=== PATIENT | male | born 1990 | race Caucasian/White ===

== ENCOUNTER 2021-05-27 16:49 | Emergency (ER) | payer MEDICAID ==
[~2021-05-27] VITALS: Ht 172.7 cm; Wt 93.0 kg
[2021-05-27 17:09] VITALS: BP 117/59
--- NOTE | 2021-05-27 17:12 | NUR ---
PT IS A&OX2 AT THIS TIME TO NAME AND . STATES HE ALSO HAD 24 OUNCES OF ALCOHOL, UNSPECIFIED.
--- NOTE | 2021-05-27 17:12 | NUR ---
NOVEL AND DEVON SWABBED
[2021-05-27] MEDS ORDERED: OLANZapine 5 MG ODT SL ONE (17:15)
[2021-05-27 17:51] LABS: BARBITURATE, URINE NEGATIVE ng/ml (NEG <=200); BENZODIAZEPINE, URINE POSITIVE ng/mL (NEG <=200); CANNABINOID, URINE POSITIVE ng/mL (NEG <=50); COCAINE, URINE NEGATIVE ng/mL (NEG <=300); OPIATE, URINE NEGATIVE ng/mL (NEG <=2000); PHENCYCLIDINE SCREEN,URINE NEGATIVE ng/mL (NEG <=25)
[2021-05-27 18:06] LABS: BASOPHILS % (AUTO) 0.9 % (0.0-2.0); EOSINOPHILS # (AUTO) 0.1 K/uL (0-0.4); EOSINOPHILS % (AUTO) 1.2 % (0.0-4.0); HEMATOCRIT 42.5 % (36-52); HEMOGLOBIN 14.8 g/dL (12.0-18.0); LYMPHOCYTES # (AUTO) 1.9 K/uL (2.0-11.5); MEAN CORPUSCULAR HEMOGLOBIN 30 pg (27-31); MEAN CORPUSCULAR HGB CONC 35 g/dL (33-37); MEAN CORPUSCULAR VOLUME 87.2 fL (80-94); MONOCYTES # (AUTO) 0.5 K/uL (0.8-1.0); MONOCYTES % (AUTO) 9.9 % (1.7-9.3); PLATELET COUNT (AUTO) 248 K/uL (140-450); RED BLOOD CELL COUNT(AUTO) 4.87 MIL/uL (4.20-6.10); WHITE BLOOD COUNT (AUTO) 5.5 K/uL (4.8-10.8)
[2021-05-27 18:18] LABS: ACETAMINOPHEN < 0.5 ug/ml (10-30); ALBUMIN 3.7 g/dL (3.4-5.0); ANION GAP 11.6 (8-16); ASPARTATE AMINOTRANSFERASE 30 U/L (15-37); CHLORIDE 105 mmol/L (98-107); CREATININE 0.8 mg/dL (0.6-1.3); GFR ARICAN-AMERICAN 146 mL/min (>90); GLUCOSE 90 mg/dL (74-106); POTASSIUM 3.6 mmol/L (3.5-5.1); SALICYLATE < 2.8 mg/dL (2.8-20.0); SODIUM SERUM 140 mmol/L (136-145); TOTAL BILIRUBIN 0.7 mg/dL (0.0-1.0); UREA NITROGEN, BLOOD 7 mg/dL (7-18)
--- NOTE | 2021-05-27 19:28 | NUR ---
RECEIVED REPORT FROM ALBERT BROWN AT [facility] FOR CONTINUITY OF CARE, PT LYING IN BED QUIETLY.
--- NOTE | 2021-05-27 20:34 | NUR ---
PT IN BED RESTNIG WITH EYES CLOSED NO C/O VOICED AND NO S/S OF PAIN OR DISTRESS NOTED.
--- NOTE | 2021-05-27 22:00 | NUR ---
PT USING TELE PSYCH FOR PSCY EVELUATION. WITH MD DELANEY.
--- NOTE | 2021-05-27 22:30 | NUR ---
SPOKE WITH MD DELANEY WHOM SAID THAT PT IS NOT FIT FOR PSYCH EVALUATION AND THAT HE REMAINS SLEEPY , CONFUSED , MUMBLING AND IS ONLY AOX2, SHE SAID THAT PT NEEDS TO BE PLACED ON A PD HOLD AND THAT SHE WILL REEVALUATE PT IN THE AM.
--- NOTE | 2021-05-27 23:24 | NUR ---
CALL PLACED TO [facility] FOR EVALUATION OF 5150 HOLD.
--- NOTE | 2021-05-28 01:27 | NUR ---
CLIENT BUSINESS MANAGER HERE TO EVALUATE FOR 5150 STATUS.
--- NOTE | 2021-05-28 02:00 | NUR ---
PT PLACED ON 5150 STATUS
--- NOTE | 2021-05-28 03:38 | NUR ---
PT IN BED ASLEEP AT THIS TIME. [address]
[2021-05-28] MEDS ORDERED: NACL 0.9% 1,000 ML IV ONE (04:40)
--- NOTE | 2021-05-28 05:08 | NUR ---
PT V/S DONE FOLLOWS: T 97.6 P 52 R 18 B/P 84/50 02 98 ON ROOM AIR. SPOKE WITH MD REGARDING PT DEREASED HR AND B/P HE ORDERED 1 ITER N/S BOLUS. IV AT RIGHT HAND 22 GUAGE WAS INSERTED, 1 LITER BOULUS HUNG. PT ALSO BECAME MORE AWAKE AND ASKED FOR FOOD. HE WAS GIVEN A HAM SANDWHICH AND VANILLA PUDDING. ITEMS PLACED AT BEDSIDE AND PT BASICALY FELL BACK TO SLEEP.
--- NOTE | 2021-05-28 07:18 | NUR ---
REPORT RECEIVED FROM [facility] FOR CONTINUITY OF CARE. PT AWAKE, A&OX4. ABLE TO MAKE NEEDS KNOWN. IV SITE RT HAND 22, INTACT, PATENT, GOOD BLOOD RETURN, SALINE LOCKED. SKIN WARM AND DRY. SAFETY PRECAUTIONS IN PLACE. 1:1 RN MONITORING.
--- NOTE | 2021-05-28 07:18 | NUR ---
REPORT GIVEN TO [facility] FOR CONTINUITY OF CARE, PT WALKED TO BED 6
--- NOTE | 2021-05-28 07:18 | NUR ---
PT MOVED TO ER BED 6. [address]
--- NOTE | 2021-05-28 09:00 | NUR ---
Patient appears to be resting comfortably in bed, EYES CLOSED. Vital Signs within normal limits. Respirations even and unlabored. CHEST RISE IS SYMMETRICAL. 1-1 RN MONITORING
--- NOTE | 2021-05-28 11:01 | NUR ---
Patient appears to be resting comfortably in bed, EYES CLOSED. Vital Signs within normal limits. Respirations even and unlabored. CHEST RISE IS SYMMETRICAL. 1-1 RN MONITORING
--- NOTE | 2021-05-28 11:21 | NUR ---
Packet faxed to [facility].
--- NOTE | 2021-05-28 11:26 | NUR ---
PT BEING EVALUATED BY TELEPSYCH AT THIS TIME
--- NOTE | 2021-05-28 11:40 | NUR ---
TELEPSYCH DOCTOR RECCOMMNEDATIONS TO CONTINUE HOLD FOR THE PT.
--- NOTE | 2021-05-28 11:42 | NUR ---
PT PROVIDED WITH LUNCH TRAY
--- NOTE | 2021-05-28 11:44 | NUR ---
Patient accepted to [facility] under Dr. Nichols, Bed 129-C. For report call [phone].
--- NOTE | 2021-05-28 12:06 | NUR ---
Patient to be transferred to [facility]. Is being transferred due to HIGHER LEVEL OF CARE. Receiving facility has accepting physician and available space. ER physician has signed transfer form. Patient or responsible constitution party has agreed to transfer and signed form. Patient belongings inventoried and will be sent with patient. Copy of nursing notes, lab reports, EKG, Physicians Orders and X-rays to be sent with patient. Report called to [facility] PR[facility] at receiving facility. [facility] ambulance service has been called for transfer. ETA is 30-45 MIN.
--- NOTE | 2021-05-28 12:37 | NUR ---
[facility] AT BEDSIDE
[2021-05-28 12:38] VITALS: BP 94/49
== END 2021-05-28 12:38 ==
LOC: MED 16:49
DX: F23 Brief psychotic disorder (principal); Z20.822 Contact with and (suspected) exposure to COVID-19; E11.9 Type 2 diabetes mellitus without complications; F17.200 Nicotine dependence, unspecified, uncomplicated; F32.9 Major depressive disorder, single episode, unspecified; Z71.6 Tobacco abuse counseling
CPT/HCPCS: 80053; 80305; 81002; 85025; 87426; 96372; 99285; G0480; G0482; J7030; U0003